=== PATIENT | female | born 1955 | race Caucasian/White ===

== ENCOUNTER → 2023-06-27 15:15 | Outpatient (BNVA) | payer MEDICARE, SELFPAY | PROVIDERS: Visit Provider Family Medicine | DX: R30.0 Dysuria (principal); L21.9 Seborrheic dermatitis, unspecified; E11.40 Type 2 diabetes mellitus with diabetic neuropathy, unspecified; G89.4 Chronic pain syndrome | CPT/HCPCS: 81000 ==

== ENCOUNTER 2023-07-10 10:19 | Outpatient (CLI) | payer MEDICARE, SELFPAY ==
--- NOTE | 2023-07-10 12:15 | USCV_ITS ---
Andreina Nunez Age: 67 Gender: F : 1955 Exam Date: 07/10/2023 10:41 Ordering Phys: Roxanne Triana MD Technologist: JARED Exam Location[place] [facility] [place] Indication: Endocarditis, valve unspecified BP: 142 / 87 HR: 0 Rhythm: Sinus Technical Quality: Good MEASUREMENTS (Male / Female) Normal Values 2D ECHO LV Diastolic Diameter PLAX 4.0 cm 4.2 - 5.9 / 3.9 - 5.3 cm IVS Diastolic Thickness 1.1 cm 0.6 - 1.0 / 0.6 - 0.9 cm IVS Systolic Thickness 1.1 cm LVPW Diastolic Thickness 0.7 cm 0.6 - 1.0 / 0.6 - 0.9 cm LVPW Systolic Thickness 1.3 cm LVOT Diameter 2.0 cm LV Ejection Fraction 2D Teich 46.9 % LV Ejection Fraction MOD 2C 43.9 % LV Ejection Fraction 2C AL 0.0 % LA Diameter 3.2 cm Aorta at Sinotubular Diameter 2.5 cm IVC Diameter 1.3 cm M-MODE LA Ao Ratio MM 1.4 AV Cusp Separation MM 1.3 cm DOPPLER AV Peak Velocity 176.0 cm/s LVOT Peak Velocity 101.0 cm/s AV Area Cont Eq vti 1.8 cm squared AV Area Cont Eq pk 1.9 cm squared MV Peak Velocity 140.0 cm/s MV Area PHT 4.0 cm squared TV Peak Velocity 181.3 cm/s TR Peak Velocity 202.5 cm/s TR Peak Gradient 16.4 mmHg TR Mean Velocity 137.0 cm/s TR Mean Gradient 8.8 mmHg TR Velocity Time Integral 41.3 cm TV Peak E Velocity 55.0 cm/s Right Atrial Pressure 3.0 mmHg Pulmonary Artery Systolic Pressu 19.4 mmHg PV Peak Velocity 72.0 cm/s RV Ejection Time 0.3 s FINDINGS Left Ventricle Left ventricle is normal in size. LV systolic function is normal with EF of 50 to 55%. No regional wall motion abnormalities are seen. Grade 1 diastolic dysfunction. Right Ventricle Normal in size and function Right Atrium Normal in size Left Atrium Normal in size Mitral Valve Mitral valve is thickened. Mild mitral annular calcification. Mild mitral regurgitation. Aortic Valve Structurally normal aortic valve. Mild aortic stenosis with aortic valve area 1.84 cm squared and mean gradient 8 mmHg. Tricuspid Valve Mild tricuspid regurgitation. Pulmonary artery systolic pressure is normal. Pulmonic Valve Not well visualized Pericardium Normal Aorta Normal in size IVC Appears to be normal CONCLUSIONS LV systolic function is normal with EF of 50 to 55%. Grade 1 diastolic dysfunction. Mild mitral annular calcification. Mild mitral regurgitation. Mild aortic stenosis. Mild tricuspid regurgitation. No comparison studies are available Isaiah Flynn MD (Electronically Signed) Final Date: 17 July 2023 11:22 S
== END 2023-07-10 10:20 | disposition home or self-care (01) ==
LOC: RAD 10:20
PROVIDERS: PCP Family Medicine; Visit Provider Family Medicine
DX: I08.3 Combined rheumatic disorders of mitral, aortic and tricuspid valves (principal)
CPT/HCPCS: 93306

== ENCOUNTER → 2023-08-28 10:50 | Outpatient (BNVA) | payer MEDICARE, SELFPAY | PROVIDERS: PCP Family Medicine; Visit Provider Internal Medicine | DX: E04.2 Nontoxic multinodular goiter (principal); R13.10 Dysphagia, unspecified; H92.02 Otalgia, left ear; E11.9 Type 2 diabetes mellitus without complications; E03.9 Hypothyroidism, unspecified; Z79.890 Hormone replacement therapy | CPT/HCPCS: 36415; 84439; 84443; 99204 ==

== ENCOUNTER → 2023-08-30 11:42 | Outpatient (BNVA) | payer MEDICARE, SELFPAY | PROVIDERS: PCP Family Medicine; Visit Provider Family Medicine | DX: E11.40 Type 2 diabetes mellitus with diabetic neuropathy, unspecified (principal); G89.4 Chronic pain syndrome; Z85.820 Personal history of malignant melanoma of skin; E11.42 Type 2 diabetes mellitus with diabetic polyneuropathy; N39.0 Urinary tract infection, site not specified; N32.81 Overactive bladder; I10 Essential (primary) hypertension; E78.2 Mixed hyperlipidemia; E55.9 Vitamin D deficiency, unspecified; M81.0 Age-related osteoporosis without current pathological fracture; E11.9 Type 2 diabetes mellitus without complications; R30.0 Dysuria; E04.1 Nontoxic single thyroid nodule; E03.9 Hypothyroidism, unspecified; I38 Endocarditis, valve unspecified; Z68.32 Body mass index [BMI] 32.0-32.9, adult | CPT/HCPCS: 80053; 80061; 81000; 82652; 83036; 83735; 84439; 84443; 85025; 87086 ==

== ENCOUNTER 2023-08-31 10:00 | Outpatient (CLI) | payer MEDICARE, SELFPAY ==
--- NOTE | 2023-08-31 10:15 | US_ITS ---
WS: [id number] THYROID ULTRASOUND HISTORY: thyroid nodules COMPARISON: None available. Right lobe: 1.0 cm x 1.3 cm x 3.1 cm (w x ap x l). Volume: 2.0 cm3. Small caliber thyroid. There is a hypoechoic ovoid nodule in the mid gland measuring 0.8 x 0.5 x 0.8 cm. Spongiform appearance. No increased vascularity. No solid nodule. Left lobe: 1.1 cm x 1.1 cm x 2.8 cm (w x ap x l). Volume: 1.7 cm3. Small caliber thyroid. Isthmus: 0.2 cm. IMPRESSION: 1. TI-RADS 2. Spongiform nodule RIGHT thyroid. 2. No additional imaging follow-up necessary.
== END 2023-08-31 10:01 | disposition home or self-care (01) ==
LOC: RAD 10:02
PROVIDERS: PCP Family Medicine; Visit Provider Internal Medicine
DX: E04.2 Nontoxic multinodular goiter (principal); E03.9 Hypothyroidism, unspecified; R13.10 Dysphagia, unspecified
CPT/HCPCS: 76536

== ENCOUNTER → 2023-09-07 10:07 | Outpatient (BNVA) | payer MEDICARE, SELFPAY | PROVIDERS: PCP Family Medicine; Visit Provider Otolaryngology | DX: K21.9 Gastro-esophageal reflux disease without esophagitis; E04.1 Nontoxic single thyroid nodule; E03.9 Hypothyroidism, unspecified; R13.13 Dysphagia, pharyngeal phase; H92.02 Otalgia, left ear; M26.623 Arthralgia of bilateral temporomandibular joint; H92.03 Otalgia, bilateral; G44.209 Tension-type headache, unspecified, not intractable; J38.7 Other diseases of larynx | CPT/HCPCS: 31575; 99204 ==

== ENCOUNTER 2023-09-20 10:10 | Outpatient (CLI) | payer MEDICARE, SELFPAY ==
--- NOTE | 2023-09-20 10:00 | FL_ITS ---
WS: [id number] Modified barium swallow, 09/20/2023 Clinical Data: Difficulty swallowing Comparison: None. Fluoroscopy time: 2min [id number] # of spot films: 0 Findings: The patient propelled the oral contents normally. There was mild premature spillage. There is no aspi ration or penetration. There is no significant residual in the piriform sinuses or vallecula. The pat ient propels the barium tablet from the oral contents through the hypopharynx into the esophagus. How ever there was delay in propulsion of the barium tablet into the stomach at the gastroesophageal junc tion. FL/FL barium swallow modifd [id number] Impression: 1. Mild premature spillage. 2. Negative for aspiration or penetration. 3. Delay in propulsion of the barium tablet into the stomach at the gastroesoph ageal junction.
== END 2023-09-20 10:11 | disposition home or self-care (01) ==
LOC: RAD 10:10
PROVIDERS: PCP Family Medicine; Visit Provider Otolaryngology
DX: R13.10 Dysphagia, unspecified (principal)
CPT/HCPCS: 74230; 92611

== ENCOUNTER → 2023-09-28 14:09 | Outpatient (BNVA) | payer MEDICARE, SELFPAY | PROVIDERS: PCP Family Medicine; Visit Provider Otolaryngology | DX: K21.9 Gastro-esophageal reflux disease without esophagitis (principal); R13.13 Dysphagia, pharyngeal phase; J38.7 Other diseases of larynx; M26.623 Arthralgia of bilateral temporomandibular joint | CPT/HCPCS: 99214 ==

== ENCOUNTER → 2023-10-05 12:13 | Outpatient (BNVA) | payer MEDICARE, SELFPAY | PROVIDERS: PCP Family Medicine; Visit Provider Emergency Medicine | DX: N39.0 Urinary tract infection, site not specified (principal) | CPT/HCPCS: 81000; 87077; 87086; 87184 ==

== ENCOUNTER 2023-12-04 08:35 | Outpatient (CLI) | payer MEDICARE, SELFPAY ==
--- NOTE | 2023-12-04 | FL_ITS ---
WS: [id number] FL barium swallow [id number] REASON FOR EXAM: GERD/TROUBLE SWALLOWING FLUOROSCOPY TIME: 3min [id number] # OF SPOT FILMS: Multiple 0 FINDINGS: Patient was evaluated in the standing upright AP and lateral, prone TODD, and supine positions. Swallo wing of barium was monitored from the oropharynx to the stomach. Swallowing was monitored fluoroscopically and multiple spot films obtained. No abnormality of the cervical esophagus was identified. Mild impingement on the thoracic esophagus at the thoracic inlet from the ectatic aorta. There is weakening of the primary peristaltic wave and intermittent tertiary contractions. There is i ntermittent retention of small volumes of barium in the midesophagus. There is a small hiatal hernia with no stricture or significant reflux. FL/FL barium swallow [id number] IMPRESSION: Mild thoracic esophageal dysmotility as above.
== END 2023-12-04 08:36 | disposition home or self-care (01) ==
LOC: RAD 08:35
PROVIDERS: PCP Family Medicine; Visit Provider Otolaryngology
DX: R13.10 Dysphagia, unspecified (principal); K44.9 Diaphragmatic hernia without obstruction or gangrene
CPT/HCPCS: 74220

== ENCOUNTER → 2024-01-31 11:19 | Outpatient (BNVA) | payer MEDICARE, SELFPAY | PROVIDERS: PCP Family Medicine; Visit Provider Family Medicine | DX: I10 Essential (primary) hypertension (principal); R13.13 Dysphagia, pharyngeal phase; E03.9 Hypothyroidism, unspecified; E11.42 Type 2 diabetes mellitus with diabetic polyneuropathy; E11.9 Type 2 diabetes mellitus without complications | CPT/HCPCS: 80053; 83036; 84439; 84443; 84481; 85025 ==

== ENCOUNTER → 2024-02-07 13:00 | Outpatient (BNVA) | payer MEDICARE, SELFPAY | PROVIDERS: PCP Family Medicine; Referring Provider Otolaryngology; Visit Provider Surgery | DX: K21.9 Gastro-esophageal reflux disease without esophagitis (principal) | CPT/HCPCS: 99213 ==

== ENCOUNTER 2024-02-29 08:54 | Day surgery (SDC) | payer MEDICARE, SELFPAY ==
[2024-02-29 09:14] VITALS: BP 140/93; PULSE 94; RESP 18; TEMP 36.5; O2SAT 96; BMI 32.1
[2024-02-29 09:25] LABS: Glucose Point of Care 202 mg/dL (70-110)
--- NOTE | 2024-02-29 09:40 | W.PM.OPSUD ---
Surgery/Procedure H&P Update DATE OF PROCEDURE: February 29, 2024 DATE H&P PERFORMED: 02/07/24 H&P UPDATE INFORMATION: I have reviewed H&P completed within last 30 days, I have examined patient prior to procedure, No changes to prior documentation and H&P is in [facility] [place] EMR on date indicated PLANNED PROCEDURE: Operation Date: 02/29/24 10:35 Proposed Procedures p EGD Dilation - 81824, 45528, g0121, K21.9, Z12.11(Not Applicable) - Glen Rodriguez MD s Colonoscopy(Not Applicable) - Glen Rodriguez MD
--- NOTE | 2024-02-29 09:45 | ANES.PREANE2 ---
Pre-Anesthetic Assessment Height/Weight: Height 1.55 m Weight 77.111 kg Temp Pulse Resp BP Pulse Ox O2 Del Method 97.7 F 94 18 140/93 96 Room Air 02/29/24 09:14 02/29/24 09:14 02/29/24 09:14 02/29/24 09:14 02/29/24 09:14 02/29/24 09:14 Preop Diagnosis: GERD/screening Operation Date: 02/29/24 10:35 Proposed Procedures p EGD Dilation - 62723, 12378, g0121, K21.9, Z12.11(Not Applicable) - Glen Rodriguez MD s Colonoscopy(Not Applicable) - Glen Rodriguez MD Familial anesthetic complications: none Was Beta Shanta taken within 24 hours: Yes Was Clonidine taken within 24 hours: N/A Last intake: Intake Last Liquid Date 02/28/24 Last Liquid Time 23:00 Last Solid Date 02/27/24 Last Solid Time 22:00 Social No alcohol and No tobacco 2nd hand Exam alert, oriented x 3, clear to auscultation bilaterally and regular rate & rhythm Airway Submandibular: within normal limits Cervical ROM: within normal limits Mallampati: Class I Dentition: chipped and full Pulmonary None reported CV/HEM Hypertension aortic valve calcification, will need surgery eventually Urinary Tract Infection (frequent not on antibiotica now) Hepatic None reported GI Gastroesophageal Reflux Disease (ontrolled) Metabolic Diabetes Mellitus, Hyperlipidemia and Thyroid Disease Musc/skel Lower Back Pain and Osteoarthritis/DJD Neuropsych None reported Anesthetic Plan ASA status: 3 Anesthesia: MAC Risk of > 500 ml blood loss (7ml/kg in children): No Medications/Allergies Home Medications Medication Instructions Recorded Confirmed Last Taken Type albuterol sulfate 90 mcg/actuation 1 inh inhalation QID 06/27/23 02/27/24 02/28/24 History aerosol inhaler aspirin 81 mg tablet,delayed 81 mg PO DAILY 06/27/23 02/27/24 02/28/24 History release (Adult Low Dose Aspirin) glipizide 10 mg tablet 10 mg PO BID 06/27/23 02/27/24 02/28/24 History ketoconazole 2 % shampoo 1 applic topical .weekly #120 mL 06/27/23 02/27/24 Unknown Rx losartan 100 mg tablet 100 mg PO DAILY 06/27/23 02/27/2402/28/24 History metoprolol succinate 25 mg 12.5 mg PO DAILY 06/27/23 02/27/24 02/28/24 History tablet,extended release 24 hr olopatadine 0.2 % eye drops 1 drp ophthalmic (eye) DAILY 06/27/23 02/27/24 02/28/24 History pantoprazole 40 mg tablet,delayed 40 mg PO DAILY 06/27/23 02/27/24 02/28/24 History release simvastatin 40 mg tablet 40 mg PO DAILY 06/27/23 02/27/24 02/28/24 History vitamin B complex (B 1 tab PO DAILY 06/27/23 02/27/24 02/28/24 History Complex-Vitamin B12 tablet) levothyroxine 75 mcg tablet 75 mcg PO DAILY 90 days #90 tabs 06/29/23 02/27/24 02/29/24 Rx fluocinonide 0.05 % topical 1 applic topical PRN 09/28/23 02/27/24 02/28/24 History solution dulaglutide 4.5 mg/0.5 mL 4.5 mg (0.5 mL) SUBCUT .WEEKLY #2 01/31/24 02/27/24 02/28/24 Rx subcutaneous pen injector mL (Trulicity) duloxetine 60 mg capsule,delayed 60 mg PO DAILY 90 days #90 caps 01/31/24 02/27/24 02/28/24 Rx release fluticasone propionate 50 1 spray intranasal BID #16 grams 01/31/24 02/27/24 02/28/24 Rx mcg/actuation nasal spray,suspension (Flonase Allergy Relief) loratadine 10 mg tablet 10 mg PO DAILY #30 tabs 01/31/24 02/27/24 02/28/24 Rx tramadol 50 mg tablet 50 mg PO DAILY PRN pain 30 days 01/31/24 02/27/24 Unknown Rx #30 tabs vibegron 75 mg tablet (Gemtesa) 75 mg PO DAILY 60 days #60 tabs 01/31/24 02/27/24 02/28/24 Rx Allergies Allergy/AdvReac Type Severity Reaction Status Date / Time sitagliptin [From Januvia] Allergy Severe ALGY-Anaphy Verified 02/27/24 10:49 laxis semaglutide [From Ozempic] Allergy Intermediate ALGY-Swell Verified 02/27/24 10:49 Lip/Tongue/Throat codeine Allergy ADR-Agitate Verified 02/27/24 10:49 d PFSH Anesthesia Surgical History (Updated 02/07/24 @ 13:29 by Cynthia Irving MA) Hx of shoulder surgery History of total knee replacement (TKR) left History of partial knee replacement right H/O: hysterectomy H/O foot surgery History of tonsillectomy and adenoidectomy Family History Grandmother Diabetes paternal Heart disease paternal Stroke Thyroid disease maternal Mother Cancer breast Heart disease Sister Cancer skin Chronic kidney disease (CKD) Diabetes Father Chronic kidney disease (CKD) Diabetes Heart disease Stroke Family/Other Chronic kidney disease (CKD) Diabetes Thyroid disease Daughter Thyroid disease Denies family history of Bleeding disorder Social History Smoking and tobacco/nicotine status: never used tobacco/nicotine Second hand smoke exposure: No Alcohol intake: never Substance/Drug Use: never Female Reproductive History Para: 2 Data Anesthesia Cardiac Studies: Echocardiogram 07/10/23
[2024-02-29] MEDS: sodium chloride 0.9% 1,000 ML 30 ML IV (10:30)
[2024-02-29 11:17] VITALS: BP 96/57; PULSE 84; RESP 12; TEMP 36.1; O2SAT 99
[2024-02-29 11:32] VITALS: BP 113/83; PULSE 92; RESP 18; O2SAT 96
--- NOTE | 2024-02-29 12:03 | ANE.PACU2 ---
Inpatient post-anesthesia follow up: Airway intact: Yes Vital signs: Temperature 97.0 F Pulse Rate 92 Respiratory Rate 18 Blood Pressure 113/83 Pulse Oximetry 96 Oxygen Delivery Me thod Room Air Oxygen Flow Rate Fraction of Inspir ed Oxygen Hydration adequate: Yes Nausea and vomiting: No Pain level: 1 Mental status: Baseline
== END 2024-02-29 12:03 | disposition home or self-care (01) ==
PROVIDERS: PCP Family Medicine; Visit Provider Surgery
PROC: 0DJD8ZZ Inspection of Lower Intestinal Tract, Via Natural or Artificial Opening Endoscopic (ICD-10-PCS; CPT 45378; 2024-02-29 10:35)
DX: Z12.11 Encounter for screening for malignant neoplasm of colon (principal); K21.9 Gastro-esophageal reflux disease without esophagitis; Z79.82 Long term (current) use of aspirin; K31.7 Polyp of stomach and duodenum; K29.50 Unspecified chronic gastritis without bleeding; D12.5 Benign neoplasm of sigmoid colon; K29.80 Duodenitis without bleeding; K57.30 Diverticulosis of large intestine without perforation or abscess without bleeding; I10 Essential (primary) hypertension; E11.9 Type 2 diabetes mellitus without complications; E78.5 Hyperlipidemia, unspecified; M19.90 Unspecified osteoarthritis, unspecified site
CPT/HCPCS: 36416; 45380; 45385; 82962; 88305; J2704; J7030

== ENCOUNTER → 2024-03-20 09:10 | Outpatient (BNVA) | payer MEDICARE, SELFPAY | PROVIDERS: PCP Family Medicine; Visit Provider Surgery | DX: Z09 Encounter for follow-up examination after completed treatment for conditions other than malignant neoplasm (principal) | CPT/HCPCS: 99213 ==

== ENCOUNTER 2024-04-26 10:09 | Outpatient (CLI) | payer MEDICARE, SELFPAY ==
--- NOTE | 2024-04-26 10:13 | MM_ITS ---
WS: [id number] SCREENING DIGITAL BREAST TOMOSYNTHESIS MAMMOGRAM WITH CAD HISTORY: SCREENING COMPARISON: None available. Bilateral CC and MLO with tomosynthesis and synthetic mammography submitted. Computer aided detection analyzed. Breast composition: There are scattered areas of fibroglandular density. Well-circumscribed high dens ity mass in the anterior LEFT breast near 9:00 needs to be further evaluated. This mass measures 3 x 3 x 3 mm. There are a few additional benign calcifications within each breast. MM/MM scr tomosynthesis [id number] IMPRESSION: BI-RADS: 0 - Incomplete: Need additional imaging evaluation. FOLLOW UP: Need Additional Imaging Recommendation: Ultrasound LEFT breast, limited.
== END 2024-04-26 10:10 | disposition home or self-care (01) ==
LOC: RAD 10:09
PROVIDERS: PCP Family Medicine; Visit Provider Family Medicine
DX: Z12.31 Encounter for screening mammogram for malignant neoplasm of breast (principal); R92.323 Mammographic fibroglandular density, bilateral breasts; N63.21 Unspecified lump in the left breast, upper outer quadrant; R92.1 Mammographic calcification found on diagnostic imaging of breast
CPT/HCPCS: 77063; 77067

== ENCOUNTER → 2024-04-30 10:36 | Outpatient (BNVA) | payer MEDICARE, SELFPAY | PROVIDERS: PCP Family Medicine; Visit Provider Family Medicine | DX: E11.9 Type 2 diabetes mellitus without complications (principal); E11.42 Type 2 diabetes mellitus with diabetic polyneuropathy; E03.9 Hypothyroidism, unspecified; Z79.899 Other long term (current) drug therapy | CPT/HCPCS: 80053; 83036; 85025 ==

== ENCOUNTER → 2024-07-11 10:25 | Outpatient (BNVA) | payer MEDICARE, SELFPAY | PROVIDERS: PCP Family Medicine; Visit Provider Family Medicine | DX: E11.9 Type 2 diabetes mellitus without complications (principal); E11.42 Type 2 diabetes mellitus with diabetic polyneuropathy; R30.0 Dysuria | CPT/HCPCS: 80048; 81000; 83036; 85025; 87086 ==

== ENCOUNTER 2024-07-23 08:50 | Outpatient (CLI) | payer MEDICARE, SELFPAY ==
--- NOTE | 2024-07-23 09:00 | US_ITS ---
WS: [id number] ULTRASOUND LEFT BREAST HISTORY: Follow-up mass seen on screening mammogram. COMPARISON: 04/26/2024 TECHNIQUE: 2-D and Doppler. Well-circumscribed 4 x 4 x 3 mm mass at 9:00 corresponds to the mammographic finding. This appears to be a small intramammary lymph node. No increased vascularity. US/US breast LT limited* [id number] IMPRESSION: BI-RADS: 2- Benign FOLLOW-UP: 1 Year Follow-up Return to annual screening mammography.
== END 2024-07-23 08:51 | disposition home or self-care (01) ==
PROVIDERS: PCP Family Medicine; Visit Provider Family Medicine
DX: R92.8 Other abnormal and inconclusive findings on diagnostic imaging of breast (principal); N63.25 Unspecified lump in the left breast, overlapping quadrants
CPT/HCPCS: 76642

== ENCOUNTER → 2024-10-14 10:20 | Outpatient (BNVA) | payer MEDICARE, SELFPAY | PROVIDERS: PCP Family Medicine; Visit Provider Family Medicine | DX: E11.42 Type 2 diabetes mellitus with diabetic polyneuropathy (principal); I10 Essential (primary) hypertension; E78.2 Mixed hyperlipidemia; E11.9 Type 2 diabetes mellitus without complications; E03.9 Hypothyroidism, unspecified; E11.40 Type 2 diabetes mellitus with diabetic neuropathy, unspecified; J30.9 Allergic rhinitis, unspecified; F33.1 Major depressive disorder, recurrent, moderate; M25.519 Pain in unspecified shoulder; G89.29 Other chronic pain | CPT/HCPCS: 80048; 80061; 83036; 84439; 84443; 84481 ==

== ENCOUNTER → 2024-11-14 11:07 | Outpatient (BNVA) | payer MEDICARE, SELFPAY | PROVIDERS: PCP Family Medicine; Visit Provider Family Medicine | DX: M19.011 Primary osteoarthritis, right shoulder (principal) | CPT/HCPCS: 73030 ==